=== PATIENT | male | born 1990 | race Hispanic/Latino ===

== ENCOUNTER 2016-11-06 07:24 | Emergency (ER) | payer SELFPAY ==
[~2016-11-06] VITALS: Ht 180.3 cm; Wt 97.7 kg
[2016-11-06 07:26] VITALS: BP 133/82; PULSE 117; RESP 18; O2SAT 98
--- NOTE | 2016-11-06 07:32 | ED.REPORT ---
HPI-Rash / Abscess Date of Service Nov 06, 2016 ED Provider: Blair Chow MD Patient is a healthy 26 year old male who presents to the ED complaining of a bump in his R axilla area onset a few days ago. Associated symptoms include R axilla pain. He said it started out feeling like a pimple but has continued to get bigger. He denies fever, chills, nausea, vomiting, or any other symptoms. Nursing Notes Stated Complaint: BUMP OR RIGHT SHOULDER Chief Complaint: Skin Rash/Abscess Nursing Notes Reviewed: Yes ([employer], meds not reconciled) Allergies: Coded Allergies: No Known Allergies (Unverified , 11/06/16) General Time Seen by MD: 07:29 Chief Complaint Abscess Hx Obtained From: Patient Arrived By: Walk-in Onset Occurred: 2 days ago Symptom Duration: Since onset Similar Sx Previous: No Past Medical History Past Medical History Healthy Past Surgical History Denies Smoking History Never Smoker Ambulatory Status Independent Review of Systems +R axilla pain Constitutional: Denies: Chills, Fever GI: Denies: Nausea, Vomiting Complete sys rev & neg: except as marked. Physical Exam Initial Vital Signs Vital Signs (First) Date Time Temp Pulse Resp B/P Pulse Ox O2 Delivery O2 Flow Rate FiO2 11/06/16 07:26 36.7 117 18 133/82 98 Initial VS: Reviewed, Vital signs abnormal (HR) Head / Eyes: Atraumatic, Normocephalic Neck: Full range of motion Respiratory: No respiratory distress Cardiovascular: Heart sounds normal Abdomen / GI: Soft, Non-tender Neurologic: Alert, Oriented, Nonfocal Psychiatric: Mood/affect normal, Behavior normal, Normal thought content General/Constitutional: Awake, Alert, Well appearing, Well developed Skin: Warm, Dry Abscess #1 Location/Condition: Positive: Axilla R... Procedures Incision & Drainage Abscess Location of Abscess: R axilla Re-Eval/Medical Decision Med Decision/Clinical Course This is a 26-year-old male presents with a right axillary abscess that has been development of the past ~3 days. The pain is increased when he could not sleep last night. He has no prior history of abscesses, no prior history of MRSA. He is generally in good health with no major medical problems. Due to discomfort came in. On exam he did have a right axillary abscess with induration in the area of small surrounding cellulitis. The patient drove himself here, declined pain medicines, so we are setting up to do an incision and drainage from the patient got a phone call from his with her is going to be need be taken to the physician, and the patient states he really could not stay or do anything else. He immediately got dressed and apparently walked out the door according to the nursing staff. (I was getting supplies set up to perform the I&D when the patient left. He was in the department for a total time of ~20+ minutes only) He did not complete his evaluation and manamegent. He did not undergo an incision and drainage - as he left prior to their being performed. He did not receive the abx or have the culture sent that I had ordered. He told the nurse that he would return as soon as he was able to make sure his child was okay, and left rapidly without discharge instructions or further discusison. I had no opportunity to talk to him and was informed by the nurse the patient received a phone call, grabbed his jacket, told the nurse and walked out the door. Source of Hx: Old records Re-Evaluation/Progress : Time of Eval: 07:50 Re-Evaluation/Progress Note: Patient left AMA to take his child to the doctor after a call from his . Differential Diagnosis: Positive: Abscess Discharge & Departure Departure Notes patient left AMA after recieiving a phone call from his with a concern about their . Impression: Primary Impression: Abscess Disposition: AGAINST MEDICAL ADVICE (Left abruptly with no opportunity for discsusion) Scribe Attestation Portions of this note were transcribed by Darryl Huerta. I, Dr. Chow personally performed the history, physical exam and medical decision-making; I reviewed and confirmed the accuracy of the information in the transcribed note. Signed by: Darryl Huerta 11/06/16, 0751 Blair Chow MD Nov 06, 2016 07:32 DARRYL HUERTA Nov 06, 2016 07:41
[2016-11-06] MEDS ORDERED: Trimethoprim-Sulfa 160 mg-800 mg Tablet PO ONE (07:45)
== END 2016-11-06 07:58 | disposition left against medical advice (07) ==
LOC: SED 07:24
DX: L02.411 Cutaneous abscess of right axilla (principal)